=== PATIENT | male | born 1960 | race Hispanic/Latino ===

== ENCOUNTER 2018-10-05 01:06 | Emergency (ER) | payer OTHER ==
[2018-10-05 01:32] VITALS: BP 108/75
[2018-10-05] MEDS ORDERED: NORCO 5/325 PO ONE (03:45)
[2018-10-05] MEDS ORDERED: IBUPROFEN PO ONE (03:45)
[2018-10-05] MEDS ORDERED: NORCO 5/325 ONE (03:47)
[2018-10-05] MEDS ORDERED: IBUPROFEN ONE (03:47)
--- NOTE | 2018-10-05 04:38 | Emergency Department Report ---
ED ENT HPI - General Chief complaint: Dental/Oral Stated complaint: JAW PAIN Time Seen by Provider: 10/05/18 02:59 Source: patient Mode of arrival: Ambulatory Limitations: No Limitations - History of Present Illness Initial comments: 58-year-old of the emergency department complaining of continued pain to his gumline and teeth that was sustained secondary to a fall 2 weeks ago. States that he fell and hit his chin while at the [employer] due to his pressure bottoming out which resulted in the injury. The [id number] medication helps to build pain, but he presents to the ED for 6 something stronger to help with the is continued pain issues. No fever, chills, sweats, chest pain, palpitations, nausea or vomiting. Location: tooth # Quality: dull Consistency: constant Worsens with: none Context- Dental: trauma, poor dental care, tooth knocked out Associated Symptoms: toothache. denies: pain with swallowing, sore throat, rhinorrhea - Related Data Previous Rx's Medication Instructions Recorded Last Taken Type Diclofenac Dr [Jayleen Rogers] 75 mg PO Q12H #60 tablet 05/23/13 Unknown Rx Chlorhexidine Mouthwash [Peridex] 15 ml MM BID #473 bottle 10/05/18 Unknown Rx Ketorolac [Toradol] 10 mg PO Q6H PRN #15 tablet 10/05/18 Unknown Rx Lidocaine Viscous 2% 5 ml MM Q3H PRN #120 udc 10/05/18 Unknown Rx Allergies Allergy/AdvReac Type Severity Reaction Status Date / Time Penicillins Allergy Unknown Verified 05/23/13 02:13 ED Dental HPI - General Chief complaint: Dental/Oral Stated complaint: JAW PAIN Time Seen by Provider: 10/05/18 02:59 Source: patient Mode of arrival: Ambulatory Limitations: No Limitations - Related Data Previous Rx's Medication Instructions Recorded Last Taken Type Diclofenac Dr [Jayleen Rogers] 75 mg PO Q12H #60 tablet 05/23/13 Unknown Rx Chlorhexidine Mouthwash [Peridex] 15 ml MM BID #473 bottle 10/05/18 Unknown Rx Ketorolac [Toradol] 10 mg PO Q6H PRN #15 tablet 10/05/18 Unknown Rx Lidocaine Viscous 2% 5 ml MM Q3H PRN #120 udc 10/05/18 Unknown Rx Allergies Allergy/AdvReac Type Severity Reaction Status Date / Time Penicillins Allergy Unknown Verified 05/23/13 02:13 ED Review of Systems ROS: Stated complaint: JAW PAIN Other details as noted in HPI Constitutional: denies: chills, fever Eyes: denies: eye pain, eye discharge, vision change ENT: dental pain. denies: ear pain, throat pain Respiratory: denies: cough, shortness of breath, wheezing Cardiovascular: denies: chest pain, palpitations Endocrine: no symptoms reported Gastrointestinal: denies: abdominal pain, nausea, diarrhea Genitourinary: denies: urgency, dysuria Musculoskeletal: denies: back pain, joint swelling, arthralgia Skin: denies: rash, lesions Neurological: denies: headache, weakness, paresthesias Psychiatric: denies: anxiety, depression Hematological/Lymphatic: denies: easy bleeding, easy bruising ED Past Medical Hx - Past Medical History Previous Medical History?: Yes Hx Hypertension: Yes Hx Arthritis: Yes - Surgical History Past Surgical History?: Yes Additional Surgical History: hernia repair - Social History Smoking Status: Never Smoker Substance Use Type: None - Medications Home Medications: Home Medications Medication Instructions Recorded Confirmed Last Taken Type Diclofenac Dr [Voltaren Dr] 75 mg PO Q12H #60 tablet 05/23/13 Unknown Rx Chlorhexidine Mouthwash [Peridex] 15 ml MM BID #473 bottle 10/05/18 Unknown Rx Ketorolac [Toradol] 10 mg PO Q6H PRN #15 tablet 10/05/18 Unknown Rx Lidocaine Viscous 2% 5 ml MM Q3H PRN #120 udc 10/05/18 Unknown Rx ED Physical Exam - General Limitations: No Limitations General appearance: alert, in no apparent distress - Head Head exam: Present: atraumatic, normocephalic - Eye Eye exam: Present: normal appearance, PERRL, EOMI. Absent: scleral icterus, conjunctival injection Pupils: Present: normal accommodation - ENT ENT exam: Present: normal exam, normal orophraynx, mucous membranes moist, other (poor dentition with several fractures and significant erosion throughout his gingival/oral cavity. There is some increased redness to the lower gingival. No no current lacerations are appreciated. There is tenderness with palpation of tooth #8. Airway is patent. Tongue and uvula midline). Absent: TM's normal bilaterally - Neck Neck exam: Present: normal inspection, tenderness. Absent: meningismus, full ROM, lymphadenopathy - Respiratory Respiratory exam: Present: normal lung sounds bilaterally. Absent: respiratory distress, wheezes, rales, rhonchi, stridor, chest wall tenderness, accessory muscle use - Cardiovascular Cardiovascular Exam: Present: regular rate, normal rhythm. Absent: systolic mur mur, diastolic murmur, rubs, gallop - GI/Abdominal GI/Abdominal exam: Present: soft, normal bowel sounds - Rectal Rectal exam: Present: deferred - Extremities Exam Extremities exam: Present: normal inspection, normal capillary refill - Back Exam Back exam: Present: normal inspection, full ROM - Neurological Exam Neurological exam: Present: alert, oriented X3 - Psychiatric Psychiatric exam: Present: normal affect, normal mood - Skin Skin exam: Present: warm, dry, intact, normal color. Absent: rash ED Course Vital Signs 10/05/18 01:29 Temperature 97.5 F L Pulse Rate 72 Respiratory 16 Rate Blood Pressure 108/75 [Right] O2 Sat by Pulse 97 Oximetry Critical care attestation.: If time is entered above; I have spent that time in minutes in the direct care of this critically ill patient, excluding procedure time. ED Disposition Clinical Impression: Dentalgia Disposition: DC-01 TO HOME OR SELFCARE Is pt being admited?: No Does the pt Need Aspirin: No Condition: Stable Instructions: Acute dental trauma (ED), Dental Caries (ED), Toothache (ED) Referrals: BECCA SMITH MD [Primary Care Provider] - 3-5 Days [facility] [Outside] - 3-5 Days
== END 2018-10-05 04:53 | disposition home or self-care (01) ==
LOC: ED 01:06
DX: K08.89 Other specified disorders of teeth and supporting structures (principal); I10 Essential (primary) hypertension; M19.90 Unspecified osteoarthritis, unspecified site; Z88.0 Allergy status to penicillin
CPT/HCPCS: 99282